=== PATIENT | female | born 1965 | race Caucasian/White ===

== ENCOUNTER 2023-11-13 21:06 | Emergency (ER) | payer MEDICARE, SELFPAY ==
[2023-11-13 21:16] VITALS: PULSE 78; RESP 18; TEMP 36.8; O2SAT 98; BMI 27.9
--- NOTE | 2023-11-13 21:22 | XRR_ITS ---
PROCEDURE INFORMATION: Exam: XR Left Ankle Exam date and time: 11/13/2023 9:49 PM Age: 58 years old Clinical indication: Pain; Ankle; Left; Additional info: Pain and swelling TECHNIQUE: Imaging protocol: Radiologic exam of the left ankle. Views: 3 or more views. COMPARISON: No relevant prior studies available. FINDINGS: Bones/joints: Normal. Soft tissues: Normal. XR/XR ankle LT min 3V* [id number] IMPRESSION: No acute findings.
--- NOTE | 2023-11-13 22:00 | USR_ITS ---
PROCEDURE INFORMATION: Exam: US Duplex Left Lower Extremity Veins, Limited Exam date and time: 11/13/2023 10:11 PM Age: 58 years old Clinical indication: Leg, lower; Patient HX: Left medial ankle pain and swelling x 2 days. No history of trauma. Patient had a lle dvt 2021. ; Additional info: Left-sided calf pain and swelling concern for dvt TECHNIQUE: Imaging protocol: Real-time duplex ultrasound of the left extremity with 2-D ferrer scale, color Doppler flow and spectral waveform analysis including responses to compression and other maneuvers (when performed) with image documentation. Limited exam focused on the left lower extremity veins. COMPARISON: CR (LOW EXM, ) 11/13/2023 9:49 PM FINDINGS: Left deep veins: Unremarkable. The common femoral, femoral, proximal profunda femoral and popliteal veins are patent without thrombus. Normal Doppler waveforms. Normal compressibility and/or augmentation response. Superficial veins: Greater saphenous vein at the saphenofemoral junction is patent without thrombus. Soft tissues: Unremarkable. Additional views in the area of symptoms in the medial ankle are unremarkable US/CV venous duplex [facility] [id number] IMPRESSION: No evidence of left leg deep vein thrombosis.
--- NOTE | 2023-11-14 00:09 | W.ED.EXTPRO ---
Documented by User: [email or web address] Hyde 11/14/23 00:14 HPI - Extremity Problem General: Chief complaint: Extremity Problem,Nontraumatic Stated complaint: Left ankle swollen jessica, like a previous blood clot Time Seen by Provider: 11/13/23 23:13 Source: patient Mode of arrival: ambulatory Limitations: no limitations History of Present Illness: Patient is a 58-year-old female presenting to the emergency department complaining of left foot pain onset chronically. Patient notes a history of blood clots, currently on Xarelto. She also notes a history of diabetes and states that the pain has steadily worsened despite being atraumatic. She notes she has had similar symptoms appear on the right side before. Currently she is not reporting any calf tenderness, shortness of breath, or other concerning signs of DVT. The area is somewhat tender to the touch, though there are no overlying varicosities or history of varicose veins. States she cannot take NSAIDs. Has not tried ice. Recently had a 14-hour road trip from [place], which seem to worsen her pain. MD Complaint: extremity pain Onset (ago): month(s) Pain Consistency: constant Location: left Associated symptoms: Deny chest pain, fever(s) or rash Review of Systems General: Reports: 10 or more systems reviewed and unremarkable except in HPI and below Const: Denies: fever(s), chills or fatigue Eyes: Denies: change in vision ENMT: Denies: throat pain, ear or mastoid pain or nasal discharge Card: Denies: chest pain, palpitations, swelling of feet/ankles or lightheadedness Resp: Denies: dyspnea, productive cough or wheezing GI: Denies: abdominal pain, nausea, vomiting, diarrhea or constipation : Denies: flank pain, difficulty voiding, dysuria or urinary frequency Musc: Reports: extremity pain (Left foot); Denies: neck pain, back pain or joint pain Skin/Breast: Denies: rash Neuro: Denies: headache(s), numbness in extremities or weakness in extremities Physical Exam Const: COMMON NORMALS: no acute distress, patient oriented x3 and no limitations GENERAL APPEARANCE: cooperative, comfortable and well developed ORIENTATION/CONSCIOUSNESS: Yes awake, Yes oriented to person, Yes oriented to place and Yes oriented to time HENMT: COMMON NORMALS: normocephalic, atraumatic and hearing grossly normal bilaterally HEAD & SCALP: normocephalic and atraumatic Eye: COMMON NORMALS: Equal, round and reactive pupils present, EOMs intact bilaterally and conjunctivae normal CONJUNCTIVA: Yes conjunctivae normal PUPIL: Yes Equal, round and reactive pupils present Neck/C-Spine: COMMON NORMALS: full ROM, supple and no JVD Resp: COMMON NORMALS: normal respiratory effort, No retractions, No use of accessory muscles and clear to auscultation bilaterally AUSCULTATION: clear to auscultation bilaterally Cardio: COMMON NORMALS: no JVD, regular rate, regular rhythm, No clicks present (Cardio), No murmurs present (Cardio) and No rub (Cardio) RATE: regular rate RHYTHM: regular rhythm Extremity: COMMON NORMALS: normal to inspection, full ROM and capillary refill normal NARRATIVE EXTREMITY EXAM: Very mild reproducible tenderness palpation of the left lateral foot. There seems to be diminished sensation to light touch bilaterally. There are no overlying varicose veins or palpable areas of induration. No calf tenderness. No significant pedal edema. Pulses intact bilaterally. Strength equal. Neuro: COMMON NORMALS: patient oriented x3, moves all extremities, no focal motor deficits and no sensory deficits noted SENSORIUM/ORIENTATION: Yes oriented to person, Yes oriented to place and Yes oriented to time Psych: COMMON NORMALS: mental status grossly normal and Normal thought process present THOUGHT PROCESS: Normal thought process present Skin: COMMON NORMALS: no rashes or lesions noted GENERAL SKIN EXAM: no rashes or lesions noted Course Vital Signs: Vital signs: Vital Signs Temperature 98.3 F 11/13/23 21:16 Pulse Rate 78 11/14/23 00:26 Respiratory Rate 18 11/14/23 00:26 Blood Pressure 141/89 11/14/23 00:26 Pulse Oximetry 98 11/14/23 00:26 Oxygen Delivery Me thod Room Air 11/13/23 21:16 MDM - Extremity (Nontraumatic) Medical Decision Making Patient presents stating she thinks she has another blood clot, as she notes history of previous currently on Xarelto. She also has history of diabetes. While she notes that her primary complaint is her left foot, she has had similar symptoms on the right. Ultrasound for DVT rule out was negative for any signs of clot. Additionally an ankle x-ray did not demonstrate any acute fractures or dislocations. Due to patient's worsening of pain, history of bilateral, history of diabetes, and frustration with continuing to have pain, we agreed to try a short course of gabapentin to see if her pain is potentially neuropathic. She will follow-up with her primary care later this week to discuss this and see if this helps her pain, and for general reevaluation. Reasons to return discussed, however due to patient being anticoagulated and negative DVT I have no concern for pulmonary embolus at this time. Lab Data Radiology Impressions Ankle X-Ray 11/13/23 21:22 IMPRESSION: No acute findings. Venous Duplex 11/13/23 22:00 IMPRESSION: No evidence of left leg deep vein thrombosis. All radiology interpretation(s) finalized by discharge Discharge Plan Discharge Patient Disposition: Home Clinical Impression: Peripheral neuropathic pain Condition: Stable Prescriptions: New gabapentin 300 mg capsule 300 mg PO DAILY Qty: 18 0RF Rx Instructions: 300mg POQD for day 1, then 300mg PO BID for day 2, then 300mg TID for days 3-7 Discharge Orders: Discharge ED (Routine); Ordered 11/14/23 Ordered By: Eldon Livingston Discharge Diet: Advance as tolerated Discharge Activity: Increase activity as tolerated Patient Instructions: Peripheral Neuropathy (ED) Activity Restrictions/Additional Instructions: Gabapentin as prescribed. Range of motion exercises as tolerated. Monitor your blood sugars closely. Follow-up with primary care to discuss prescription and for reevaluation. Return with any new or concerning symptoms. Coding Level of Care Code ED [employer] for [employer] Documented by User: Tato Clayton DO 11/22/23 07:53 HPI - Extremity Problem General: Chief complaint: Extremity Problem,Nontraumatic Stated complaint: Left ankle swollen jessica, like a previous blood clot Time Seen by Provider: 11/13/23 23:13 Course Vital Signs: Vital signs: Vital Signs Temperature 98.3 F 11/13/23 21:16 Pulse Rate 78 11/14/23 00:26 Respiratory Rate 18 11/14/23 00:26 Blood Pressure 141/89 11/14/23 00:26 Pulse Oximetry 98 11/14/23 00:26 Oxygen Delivery Me thod Room Air 11/13/23 21:16 MDM - Extremity (Nontraumatic) Medical Decision Making Patient presents stating she thinks she has another blood clot, as she notes history of previous currently on Xarelto. She also has history of diabetes. While she notes that her primary complaint is her left foot, she has had similar symptoms on the right. Ultrasound for DVT rule out was negative for any signs of clot. Additionally an ankle x-ray did not demonstrate any acute fractures or dislocations. Due to patient's worsening of pain, history of bilateral, history of diabetes, and frustration with continuing to have pain, we agreed to try a short course of gabapentin to see if her pain is potentially neuropathic. She will follow-up with her primary care later this week to discuss this and see if this helps her pain, and for general reevaluation. Reasons to return discussed, however due to patient being anticoagulated and negative DVT I have no concern for pulmonary embolus at this time. Chart reviewed Lab Data Radiology Impressions Ankle X-Ray 11/13/23 21:22 IMPRESSION: No acute findings. Venous Duplex 11/13/23 22:00 IMPRESSION: No evidence of left leg deep vein thrombosis. Discharge Plan Discharge Patient Disposition: Home Clinical Impression: Peripheral neuropathic pain Condition: Stable Prescriptions: New gabapentin 300 mg capsule 300 mg PO DAILY Qty: 18 0RF Rx Instructions: 300mg POQD for day 1, then 300mg PO BID for day 2, then 300mg TID for days 3-7 Discharge Orders: Discharge ED (Routine); Ordered 11/14/23 Ordered By: Eldon Livingston Discharge Diet: Advance as tolerated Discharge Activity: Increase activity as tolerated Patient Instructions: Peripheral Neuropathy (ED) Activity Restrictions/Additional Instructions: Gabapentin as prescribed. Range of motion exercises as tolerated. Monitor your blood sugars closely. Follow-up with primary care to discuss prescription and for reevaluation. Return with any new or concerning symptoms. Coding Level of Care Code ED [employer] for [employer]
[2023-11-14] MEDS: gabapentin 300 mg Capsule PO (00:24)
[2023-11-14 00:26] VITALS: BP 141/89; PULSE 78; RESP 18; O2SAT 98
== END 2023-11-14 00:26 | disposition home or self-care (01) ==
PROVIDERS: Emergency Provider Physician Assistant
DX: E11.42 Type 2 diabetes mellitus with diabetic polyneuropathy (principal)
CPT/HCPCS: 73610; 93971; 99284